=== PATIENT | female | born 1965 | race Caucasian/White ===

== ENCOUNTER 2019-09-25 03:46 | Inpatient (IN) | payer BC ==
[~2019-09-25] VITALS: Ht 162.6 cm; Wt 73.9 kg
[2019-09-25 04:07] LABS: BASOPHIL % 0.8 % (0-2); PLATELET COUNT 281 x10^3mcL (130-400); RED CELL DISTRIBUTION WIDTH 13.2 % (11.5-14.5)
[2019-09-25 04:19] LABS: CALCIUM 8.6 mg/dL (8.5-10.1); CARBON DIOXIDE 27.5 mmol/L (21-32); CHLORIDE SERUM 105 mmol/L (98-107); CREATININE SERUM 0.8 mg/dL (0.6-1.0); GFR1 > 60 mL/min; GLUCOSE SERUM 141 mg/dL (74-106); POTASSIUM SERUM 3.1 mmol/L (3.5-5.1); SODIUM SERUM 142 mmol/L (136-145)
[2019-09-25 04:23] LABS: ALBUMIN 3.5 g/dL (3.4-5.0); ALKALINE PHOSPHATASE 97 U/L (46-116); ALT/SGPT 20 U/L (14-59); AST/SGOT 16 U/L (15-37); BILIRUBIN TOTAL 0.2 mg/dL (0.20-1.00); TOTAL PROTEIN, SERUM 7.4 g/dL (6.4-8.2)
[2019-09-25] MEDS ORDERED: AMLODIPINE BES1 CAP PO (06:32)
[2019-09-25 06:44] VITALS: BP 126/70
[2019-09-25 07:00] LABS: CHOLESTEROL/HDL RATIO 3.2
[2019-09-25 07:34] LABS: FREE T4 1.25 ng/dL (0.76-1.46); FREE THYROXINE INDEX 4.5 ug/dL (1.4-4.5); T4(THYROXINE) 12.5 ug/dL (4.7-13.3)
[2019-09-25 07:38] LABS: microscopic required? YES; urine erythrocyte NEGATIVE (NEGATIVE)
[2019-09-25 08:02] VITALS: BP 121/70
[2019-09-25 08:12] LABS: T3 TOTAL 1.71 ng/mL
[2019-09-25 08:55] LABS: AMPHETAMINE QUAL UR NONE DETECTED (See below)
[2019-09-25 11:27] VITALS: BP 135/84
[2019-09-25 11:28] VITALS: BP 103/56
[2019-09-25 15:52] VITALS: BP 115/66
[2019-09-25] MEDS ORDERED: LOV80I SC (20:12)
[2019-09-25] MEDS ORDERED: ECO81 PO (20:13)
[2019-09-25] MEDS ORDERED: LIPITOR80 MG PO (20:13)
[2019-09-25 21:42] VITALS: BP 102/56
== END 2019-09-26 02:30 | disposition short-term general hospital (02) | DRG 282 ==
LOC: ED 03:46 → DU 04:59
PROVIDERS: Emergency Medicine; ADMIT Internal Medicine
DX: I21.4 Non-ST elevation (NSTEMI) myocardial infarction (principal); E87.6 Hypokalemia; I10 Essential (primary) hypertension; Z79.899 Other long term (current) drug therapy
CPT/HCPCS: 83880; 84439; 85378; G0378; J1650; J2270; J2405; Q0092